=== PATIENT | male | born 1950 | race Caucasian/White ===

== ENCOUNTER → 2016-09-17 | Outpatient (CLI) | payer OTHER, BC | LOC: CAT 12:03 | DX: R06.02 Shortness of breath (principal); Z87.891 Personal history of nicotine dependence; J43.9 Emphysema, unspecified; I25.10 Atherosclerotic heart disease of native coronary artery without angina pectoris ==

== ENCOUNTER → 2017-05-15 | Outpatient (CLI) | payer OTHER, BC ==
[~2017-05-15] VITALS: Ht 177.8 cm; Wt 88.9 kg
[~2017-05-15] MED LIST: ASPIR 8181 MG PO; COQ-10100 MG PO; FISH OIL 1,001000 M2 PO; METFORMIN HCL500 MG PO; PLAVIX 75 MG TA75 M1 PO; PRAVACHOL80 MG PO; PRILOSEC 20 MG20 MG PO; TOPROL XL25 MG PO; VALTREX 500 MG500 M1 PO; ZESTORETIC 10-1 EACH PO
--- NOTE | ~2017-05-15 | CATHLAB ---
[facility] [address] [place] [address] INVASIVE PROCEDURE REPORT Name: HARSHAL LEACH Room #: REG [facility]#: [id number] Admission: 05/15/17 Attend Phys: Иван Good MD Discharge: Date of : 48 Date of Service: 05/15/17 180 Report #: [id number] THIS REPORT FOR: //name// APPROVED REPORT Patient Details Patient Status: Out-Patient Room #: The patient is a 67 year-old male Event Personnel Иван Good Cosmetic Sales Advisor, Rosi Benitez Monitor, Neelam Olson RTJose M Monitor, Tim Galdamez RN RN, Edmundo Khalil RN, Marci Nunez Procedures Performed Art Access - R femoral artery* Left Heart Cath w/or w/o Coronaries 3807609 C Hemostasis w/ Mynx 89250 Initial Mod Sed Same Phys/QHP Gr5y 278244 Indication Dyspnea, Positive stress test Risk Factors Hypercholesterolemia, Hypertension Procedure Narrative The patient was brought electively to the Cardiac Catheterization Laboratory and was prepped and draped in a sterile manner. The Right Groin^ was infiltrated with 1% Lidocaine subcutaneous anesthesia. A PINNACLE 5FR Sheath #[id number] sheath was inserted into the RFA^. Coronary angiography was performed using coronary diagnostic catheters. The right coronary system was accessed and visualized with a JR 4 catheter. The left coronary system was accessed and visualized with a JL 4 catheter. The left ventricle was accessed and visualized with a Pigtail catheter. Left ventricular/Aortic Valve gradient assessed via catheter pullback. Left ventriculogram was performed in BAHENA projection. Pre-demployment femoral angiogram was performed . The patient tolerated the procedure well and there were no complications associated with the procedure. There was no hematoma. Intraoperative Conscious Sedation Sedation start time: 11:24 Case end Time: 11:47 Fentanyl 50.0 mcg Versed 1.0 mg [facility] [place] [address] INVASIVE PROCEDURE REPORT Name: HANYHARSHAL BLACK Room #: REG [facility]#: [id number] Admission: 05/15/17 Attend Phys: Иван Good MD Discharge: Date of : 48 Date of Service: 05/15/17 1803 Report #: [id number] Fluoro Time: 2.58 minutes Dose: DAP 5378.30 cGycm2 624 mGy Contrast Type and Amount: Omnipaque 145 ml Coronary Angiography The patient's coronary anatomy is right dominant. Diagnostic Cath Left Main large-caliber vessel, with no flow-limiting lesions. LAD Ectatic region in proximal LAD. There is mild disease in the mid segment. Diagonal 1 Small-caliber vessel, no flow limiting lesions. OM1 Small-caliber vessel, severe stenosis in proximal segment. Recommend medical therapy. OM2 Ectatic region in proximal segment, no flow limiting lesions. 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 R PDA Small-caliber vessel, moderate stenosis in mid segment. Left Ventriculography The left ventricle is normal in size with normal contractility. The left ventricular ejection fraction is estimated to be 50-55%. Hemodynamics The aortic pressure is 116/82 mmHg with a mean of 97 mmHg. The left ventricular pressure is 117/5 mmHg with a mean of mmHg. The left ventricular end diastolic pressure is 19 mmHg. Conclusion 1. Ectatic vessels with aneurysmal segments as described above. 2. Severe stenosis in a small-caliber vessel, OM1. Recommend medical therapy. 3. Normal LV systolic function. Recommendations Medical Therapy <ELECTRONICALLY SIGNED> By: Иван Good MD 05/15/171802 02 02 Иван Good MD /INF
[2017-05-15 08:57] VITALS: BP 137/82
[2017-05-15 10:24] LABS: HEMATOCRIT 47.4 % (42.0-52.0); MCH 29.3 pg (26.0-34.0); MCHC 33.7 g/dL (28.0-37.0); RBC 5.45 mil/uL (4.50-6.00); RDW 13.7 % (10.5-14.5); WBC 7.2 thou/uL (4.0-11.0)
[2017-05-15 14:05] LABS: CALCIUM 9.4 mg/dL (8.5-10.1); POTASSIUM 4.1 mmol/L (3.5-5.1)
== END | disposition home or self-care (01) ==
LOC: CATH 09:53
PROVIDERS: Internal Medicine Cardiovascular Disease
DX: I25.10 Atherosclerotic heart disease of native coronary artery without angina pectoris (principal); I10 Essential (primary) hypertension; I25.41 Coronary artery aneurysm; E78.00 Pure hypercholesterolemia, unspecified; E11.9 Type 2 diabetes mellitus without complications; K21.9 Gastro-esophageal reflux disease without esophagitis; Z87.891 Personal history of nicotine dependence; Z98.890 Other specified postprocedural states; Z79.82 Long term (current) use of aspirin; Z79.899 Other long term (current) drug therapy

== ENCOUNTER → 2017-06-10 | Outpatient (CLI) | payer OTHER, BC | LOC: CAT 10:58 | DX: E04.1 Nontoxic single thyroid nodule (principal); I25.10 Atherosclerotic heart disease of native coronary artery without angina pectoris; R91.1 Solitary pulmonary nodule; K76.0 Fatty (change of) liver, not elsewhere classified ==

== ENCOUNTER → 2018-07-07 | Outpatient (CLI) | payer OTHER, BC | LOC: CAT 12:24 | DX: J84.10 Pulmonary fibrosis, unspecified (principal); E04.1 Nontoxic single thyroid nodule; I25.10 Atherosclerotic heart disease of native coronary artery without angina pectoris ==

== ENCOUNTER → 2019-07-12 | Outpatient (CLI) | payer OTHER, BC | LOC: CAT 10:50 | DX: R91.1 Solitary pulmonary nodule (principal); I25.10 Atherosclerotic heart disease of native coronary artery without angina pectoris; J84.10 Pulmonary fibrosis, unspecified ==

== ENCOUNTER → 2020-02-29 | Outpatient (CLI) | payer OTHER, BC | LOC: SJCVCIMAG 08:40 | PROVIDERS: ATTEND Internal Medicine Cardiovascular Disease | DX: R06.00 Dyspnea, unspecified (principal); I25.10 Atherosclerotic heart disease of native coronary artery without angina pectoris; I10 Essential (primary) hypertension; E78.5 Hyperlipidemia, unspecified; E11.9 Type 2 diabetes mellitus without complications; E78.00 Pure hypercholesterolemia, unspecified; Z87.891 Personal history of nicotine dependence; Z79.899 Other long term (current) drug therapy; Z79.84 Long term (current) use of oral hypoglycemic drugs ==

== ENCOUNTER → 2020-03-13 | Outpatient (CLI) | payer OTHER, BC ==
[~2020-03-13] VITALS: Ht 177.8 cm; Wt 91.2 kg
[2020-03-13 07:16] VITALS: BP 106/68
[2020-03-13 07:20] LABS: HEMATOCRIT 45.3 % (42.0-52.0); HEMOGLOBIN 15.3 gm/dL (14.0-18.0); MCH 29.3 pg (26.0-34.0); MCHC 33.8 g/dL (28.0-37.0); MCV 86.7 fL (80.0-100.0); RBC 5.23 mil/uL (4.50-6.00); WBC 5.9 thou/uL (4.0-11.0)
[2020-03-13 07:32] LABS: CALCIUM 8.6 mg/dL (8.5-10.1); CREATININE 1.1 mg/dL (0.7-1.3); POTASSIUM 3.9 mmol/L (3.5-5.1)
--- NOTE | 2020-03-13 08:22 | EKG ---
[facility] [place] [address] ELECTROCARDIOGRAM REPORT Name: HARSHAL LEACH Room #: REG [facility].#: [id number] Admission: 03/13/20 Attend Phys: Иван Good MD Discharge: Date of : 48 Report #: [id number] THIS REPORT FOR: cc: Micki Dela Cruz MD, Jennifer S. MD Lundgren,Jose Martin Shaw MD [facility] ~ THIS REPORT FOR: //name// [facility] Test Date: 2020-03-13 Test Time: 07:09:34 Pat Name: HARSHAL LEACH Department: Room: Gender: Sales And Service Consultant: ROSIO : 1950 Requested By: Иван Good Order Number: [id number] MD: Jose Martin Willard Measurements Intervals Dale Rate: 66 P: 57 AK: 176 QRS: -22 QRSD: 115 T: 34 QT: 428 QTc: 449 Interpretive Statements Sinus rhythm Incomplete left bundle branch block No previous ECG available for comparison Electronically Signed On 03-13-2020 8:22:34 CDT by Jose Martin Willard [email or web address] <ELECTRONICALLY SIGNED> By: Jose Martin Willard MD, [facility] 03/13/20821 8 8 Jose Martin Willard MD, [facility] /EPI
--- NOTE | 2020-03-13 14:38 | CATHLAB ---
[facility] [place] [address] INVASIVE PROCEDURE REPORT Name: HARSHAL LEACH Room #: REG [facility].#: [id number] Admission: 03/13/20 Attend Phys: Иван Good MD Discharge: Date of : 48 Report #: [id number] THIS REPORT FOR: cc: Micki Dela Cruz MD, Jennifer S. MD Park, Jin S. MD ~ APPROVED REPORT Study performed: 03/13/2020 11:24:08 Patient Details Patient Status: Out-Patient Room #: The patient is a 70 year-old male Event Personnel Иван Good Sack Maker, Irma Gonzalez RN RN, Jennifer Rojas RTR, Enrique Ford Roberta Monitor, Joslyn Sr RTR Monitor, Ifeanyi Jimenez RN entry examiner Performed Art Access - R femoral artery* Left Heart Cath w/or w/o Coronaries [id number] [facility] Hemostasis with Manual pressure 49174 Initial Mod Sed Same Phys/QHP Gr5y 133277 08645 Mod Sed Same Phys/QHP Ea 364157 Indication Dyspnea, Positive stress test Risk Factors Hypercholesterolemia, Coronary Artery DiseaseHypertension, Diabetes Procedure Narrative The Right Groin^ was infiltrated with 1% Lidocaine subcutaneous anesthesia. A PINNACLE 4FR Sheath #[id number] sheath was inserted into the RFA^. Coronary angiography was performed using coronary diagnostic catheters. The right coronary system was accessed and visualized with a JR4 catheter. The left coronary system was accessed and visualized with a JL4 catheter. Hemostasis was obtained with manual pressure following sheath removal without any complications. The patient tolerated the procedure well and there were no complications associated with the procedure. Intraoperative Conscious Sedation Sedation start time: 1133 Case end Time: [facility] [address] [place] [address] INVASIVE PROCEDURE REPORT Name: HARSHAL LEACH Room #: REG [facility]#: [id number] Admission: 03/13/20 Attend Phys: Иван Good MD Discharge: Date of : 48 Report #: [id number] Fentanyl 50 mcg Versed 1 mg Fluoro Time: 3.80 minutes Dose: DAP 6151.00 cGycm2 1716 mGy Contrast Type and Amount: Omnipaque 75 ml Coronary Angiography The patient's coronary anatomy is right dominant. Diagnostic Cath Left Main This is a large-caliber vessel, patent with no flow-limiting lesions. LAD There is an ectatic region in the proximal segment. There is mild to moderate disease in the midsegment, 30 to 40%. Diagonal 1 This is a small to moderate-sized caliber vessel, patent with no flow-limiting lesions. Diagonal 2 Appears to be occluded at the ostium, the mid and distal segments are filled via collateral circulation. Unchanged from prior procedures. OM1 This is a small caliber vessel with a severe stenosis in the proximal segment, recommend medical therapy. OM2 There is an ectatic region in the proximal segment. Right Coronary The RCA proper is ectatic throughout with aneurysmal components. Unchanged from prior procedures. R PDA There is a moderate stenosis in the midsegment, 50%. RPLV This is a small to moderate-sized caliber vessel, patent with no flow-limiting lesions. Left Ventriculography Left Ventriculography was not performed. Ejection Fraction was >55% based off patient's Nuclear Cardiac Stress Test. An LVEDP was measured and there is no gradient across the outflow tract. Hemodynamics The aortic pressure is 106/68 mmHg with a mean of 90 mmHg. The left ventricular pressure is 104/7 mmHg with a mean of mmHg. Conclusion 1. Ectatic segments as listed above, essentially unchanged from prior procedure. 2. There is a severe occlusion of a small caliber vessel, OM1. Recommend medical therapy. 3. Occluded second diagonal artery with collateral filling, [facility] [address] [place] [address] INVASIVE PROCEDURE REPORT Name: HARSHAL LEACH Room #: REG [facility]#: [id number] Admission: 03/13/20 Attend Phys: Иван Good MD Discharge: Date of : 48 Report #: [id number] unchanged from prior procedures. 4. Recommend guideline directed risk factor management. <ELECTRONICALLY SIGNED> By: Иван Good MD 03/13/20 1438 1438 1438 Иван Good MD /INF
== END | disposition home or self-care (01) ==
LOC: CATH 06:32
PROVIDERS: ATTEND Internal Medicine Cardiovascular Disease
DX: R94.39 Abnormal result of other cardiovascular function study (principal); R06.00 Dyspnea, unspecified; I25.10 Atherosclerotic heart disease of native coronary artery without angina pectoris; I10 Essential (primary) hypertension; E11.9 Type 2 diabetes mellitus without complications; M54.5 Low back pain; G89.29 Other chronic pain; E78.00 Pure hypercholesterolemia, unspecified; E78.5 Hyperlipidemia, unspecified; K21.9 Gastro-esophageal reflux disease without esophagitis; Z98.890 Other specified postprocedural states; Z79.899 Other long term (current) drug therapy; Z87.891 Personal history of nicotine dependence; Z79.82 Long term (current) use of aspirin

== ENCOUNTER → 2020-04-03 | Outpatient (CLI) | payer OTHER, BC | LOC: SJCVC 14:48 | PROVIDERS: ATTEND Internal Medicine Cardiovascular Disease | DX: R94.31 Abnormal electrocardiogram [ECG] [EKG] (principal); I25.10 Atherosclerotic heart disease of native coronary artery without angina pectoris; I10 Essential (primary) hypertension; E78.00 Pure hypercholesterolemia, unspecified; K21.9 Gastro-esophageal reflux disease without esophagitis; E11.9 Type 2 diabetes mellitus without complications; E78.5 Hyperlipidemia, unspecified; Z79.84 Long term (current) use of oral hypoglycemic drugs; Z79.899 Other long term (current) drug therapy; Z87.891 Personal history of nicotine dependence ==

== ENCOUNTER → 2020-10-05 | Outpatient (CLI) | payer OTHER, BC | LOC: SJCVC 10:58 | PROVIDERS: ATTEND Internal Medicine Cardiovascular Disease | DX: R94.31 Abnormal electrocardiogram [ECG] [EKG] (principal); I25.10 Atherosclerotic heart disease of native coronary artery without angina pectoris; I10 Essential (primary) hypertension; E78.00 Pure hypercholesterolemia, unspecified; K21.9 Gastro-esophageal reflux disease without esophagitis; I49.3 Ventricular premature depolarization; E11.51 Type 2 diabetes mellitus with diabetic peripheral angiopathy without gangrene; J44.9 Chronic obstructive pulmonary disease, unspecified; Z79.84 Long term (current) use of oral hypoglycemic drugs; Z79.899 Other long term (current) drug therapy; Z87.891 Personal history of nicotine dependence ==

== ENCOUNTER → 2020-11-09 | Outpatient (CLI) | payer OTHER, BC | LOC: SJCVCIMAG 09:00 | PROVIDERS: ATTEND Internal Medicine Cardiovascular Disease | DX: I73.9 Peripheral vascular disease, unspecified (principal); M79.604 Pain in right leg; M79.605 Pain in left leg; E11.51 Type 2 diabetes mellitus with diabetic peripheral angiopathy without gangrene; Z87.891 Personal history of nicotine dependence ==